=== PATIENT | male | born 2000 | race Two or more races ===

== ENCOUNTER 2025-06-04 07:20 | Emergency (ER) | payer MEDICAID, SELFPAY ==
[2025-06-04 07:21] VITALS: BMI 27.3
[2025-06-04 07:28] VITALS: BP 133/85; PULSE 87; RESP 18; TEMP 36.9; O2SAT 100
--- NOTE | 2025-06-04 07:33 | XR_ITS ---
Examination: Ribs, left, with PA chest, 3 views Technique: Chest PA, RIBS AP, RPO, LPO, AP coned lower ribs 5 views Exam date and time: 06/04/2025 at 7:44 a.m. Findings: No evidence for acute rib fracture. No aggressive bone lesions. Both lungs are clear. No pleural effusion or pneumothorax. Normal heart size. Vertebral bodies and intervertebral discs demonstrate normal stature. Impression: No radiographic evidence for acute rib fracture, and no evidence for acute cardiopulmonary abnormality.
--- NOTE | 2025-06-04 07:35 | PD.EDCHEST ---
ED Chest Pain RME/HPI General Chief Complaint: Chest Pain Stated Complaint: LEFT RIB INJURY YESTERDAY Time Seen by Provider: 06/04/25 07:25 Source: patient Arrival date/time: 06/04/25 07:20 25-year-old male with no known medical history presents to the emergency room with a chief complaint of left rib pain after an injury playing soccer yesterday afternoon Mode of arrival: ambulatory Limitations: no limitations Related Data Allergies Allergy/AdvReac Type Severity Reaction Status Date / Time No Known Allergies Allergy Verified 06/04/25 07:22 Review of Systems Review of Systems Systems Reviewed: All systems reviewed, normal except as documented Constitutional Constitutional: Reports system reviewed and no additional complaints, except as documented, Denies fatigue, Denies fever(s), Denies headache(s) and Denies weakness Eyes Eyes: Reports system reviewed and no additional complaints, except as documented, Denies blurry vision and Denies change in vision ENT Ears, Nose, Mouth, and Throat: Reports system reviewed and no additional complaints, except as documented, Denies otalgia, Denies headache(s), Denies nasal congestion, Denies throat swelling and Denies vertigo Cardiovascular Cardiovascular: Reports system reviewed and no additional complaints, except as documented, Denies chest pain, Denies dyspnea and Denies dyspnea on exertion Respiratory Respiratory: Reports system reviewed and no additional complaints, except as documented, Denies chest congestion, Denies cough, Denies dyspnea, Denies dyspnea on exertion and Denies wheezing Gastrointestinal Gastrointestinal: Reports system reviewed and no additional complaints, except as documented, Denies abdominal pain, Denies cramping, Denies nausea and Denies vomiting Genitourinary Genitourinary: Reports system reviewed and no additional complaints, except as documented, Denies dysuria and Denies hematuria Musculoskeletal Musculoskeletal: Reports system reviewed and no additional complaints, except as documented, Reports arthralgias and Denies back pain Integumentary/Breasts Skin/Breast: Reports system reviewed and no additional complaints, except as documented and Denies wounds Neurologic Neurologic: Reports system reviewed and no additional complaints, except as documented, Denies confusion, Denies headache(s), Denies lack of coordination, Denies vertigo and Denies weakness Psychiatric Psychiatric: Reports system reviewed and no additional complaints, except as documented, Denies anxiety, Denies confusion, Denies depression, Denies paranoia, Denies suicidal ideation and Denies tactile hallucinations Endocrine Endocrine: Reports system reviewed and no additional complaints, except as documented and Denies fatigue Hematologic/Lymphatic Hematologic/Lymphatic: Reports system reviewed and no additional complaints, except as documented and Denies lymphadenopathy Allergic/Immunologic Allergic/Immunologic: Reports system reviewed and no additional complaints, except as documented, Denies throat swelling, Denies urticaria and Denies wheezing Past Medical History Social History SMOKING STATUS: Never smoker ED Exam General Limitations: Present no limitations General appearance: Present alert and in no apparent distress Head Head exam: Present atraumatic Eye Eye exam: Present normal appearance, PERRL and EOMI ENT ENT exam: Present normal exam, normal oropharynx and mucous membranes moist Neck Neck exam: Present normal inspection, full ROM and trachea midline Chest Chest inspection: Present normal inspection, symmetric chest wall rise and tenderness Expanded Chest Exam Breast: left: tenderness Respiratory Respiratory exam: Present normal lung sounds bilaterally Cardiovascular Cardiovascular exam: Present regular rate, normal rhythm and normal heart sounds Abdominal Exam Abdominal exam: Present soft and normal bowel sounds Extremities Exam Extremities exam: Present normal inspection and full ROM Back Exam Back exam: Present normal inspection and full ROM Neurological Exam Neurological exam: Present alert, oriented X3 and CN II-XII intact Psychiatric Psychiatric exam: Present normal affect and normal mood Skin Skin exam: Present warm, dry, intact and normal color Course Quality Measures none Orders Category Date Time Status XR ribs LT min 3V w CXR1V Stat Exams 06/04/25 07:33 Completed Vital Signs Vital signs: Vital Signs Temperature 98.5 F 06/04/25 07:28 Pulse Rate 87 06/04/25 07:28 Respiratory Rate 18 06/04/25 07:28 Blood Pressure 133/85 H 06/04/25 07:28 Pulse Oximetry (%) 100 06/04/25 07:28 Oxygen Delivery Method Room Air 06/04/25 07:28 Chest Pain MDM Narrative MDM Narrative:: 25-year-old male with no known medical history presents to the emergency room with a chief complaint of left rib pain after an injury playing soccer yesterday afternoon Patient is hemodynamically stable and in no apparent distress. O2 saturation is 100% on room air patient is nontachycardic and nontachypneic Physical examination shows tenderness to the posterior ribs on his left side. The patient has clear bilateral lung sounds and there is no wheezing or any abnormal breath sounds Chest x-ray was negative for any pneumothorax or hemothorax or any pulmonary contusion. There are no acute rib fractures Patient was discharged and educated to follow-up with primary care provider in the next 24 to 48 hours and return to the emergency room for any evidence of worsening signs or symptoms Patient data External records reviewed:: [facility] previous records Clinical information provided by:: patient Social determinants that could affect healthcare access:: none Patient has the following chronic illnesses:: No chronic illness How is presenting disease/condition affected by chronic disease/condition?: no chronic disease Evaluation data The following diagnostics were reviewed and interpreted by me:: lab results and radiology exam(s) Lab and/or radiology exams considered but not ordered:: Labs and radiology exams considered and ordered Interpretation Summary: Chest x-ray-no acute fractures Medications / Prescriptions Medications or Prescriptions considered but not ordered:: N/A Medication administrations:: N/A Consultations Consultation(s) initiated? (list below): No Diagnosis Chest Pain Differential Diagnosis: fracture of rib, pneumothorax, costochondritis and other (Rib contusion) Most likely diagnosis given after review of the tests above:: Rib contusion Admission Indicated Admission indicated?: not indicated Admission Request Was there a request for admission?: No Disposition Plan Disposition Plan: Discharge Discharge Attestation Discharge Attestation: The patient and all family members were given an opportunity to ask questions and understood the discharge instructions. Discharge instructions specifically effects, indications for sooner follow up or return to the emergency department, and the expected course of current diagnosis. Patient condition: Stable Discharge Plan Plan Patient Disposition: HOME (Self Care) Discharge Disposition comment: Stable Problem List Clinical Impression: Contusion of rib on left side Patient/Caregiver Discharge Instructions Additional Instructions: Por favor, acuda a lopez m?dico de cabecera en las pr?ximas 24 a 48 horas. Se le realiz? hugo radiograf?a de costillas y no se observaron fracturas ni luxaciones agudas. Si presenta alg?n empeoramiento de los signos o s?ntomas, regrese inmediatamente a urgencias. Print Language: Guamanian Stand Alone Forms: Anjali Award Info., Work/School Release, Patient Portal Info Letter PA/[employer] Supervising Physician PA/[employer] Supervising Physician: Dr. Baker
== END 2025-06-04 08:41 | disposition home or self-care (01) ==
PROVIDERS: Emergency Provider Family Medicine; PCP Family Medicine
DX: S20.212A Contusion of left front wall of thorax, initial encounter (principal); X58.XXXA Exposure to other specified factors, initial encounter; Y92.322 Soccer field as the place of occurrence of the external cause; Y93.66 Activity, soccer
CPT/HCPCS: 71101; 99282